=== PATIENT | male | born 1930 | race Caucasian/White ===

== ENCOUNTER 2016-07-16 17:37 | Emergency (ER) | payer MEDICARE, MEDICAID ==
[~2016-07-16] VITALS: Ht 175.3 cm; Wt 89.4 kg
[~2016-07-16 17:37] MED LIST: ATEN50TA80 PO; LISI-646 PO; SIMV-8 PO; WARF5INJ IV
[2016-07-16 20:34] LABS: Basophils # (auto) 0 uL; Basophils % (auto) 0.2 % (0.0-2.0); Eosinophils # (auto) 0.1 uL; Eosinophils % (auto) 0.7 % (0.0-7.0); Hematocrit 44.7 % (41.0-53.0); Hemoglobin 14.3 g/dL (13.5-17.5); Lymphocytes # (auto) 1.5 uL; Mean Corpuscular Volume 90.4 fL (80.0-100.0); Mean Platelet Volume 10.5 fL (7.4-10.4); Monocytes % (auto) 8.5 % (0.0-12.0); Neutrophils # (auto) 9.5 uL; Neutrophils % (auto) 78.6 % (37.0-80.0); Platelet Count (auto) 73 10^3/uL (140-450); Red Cell Distribution Width 13.8 % (11.6-16.0); White Blood Cell 12.1 10^3/uL (4.4-10.8)
[2016-07-16 20:48] LABS: INR 1.28 (0.9-1.15); Prothrombin Time 13.2 sec (9.37-12.3)
[2016-07-16 20:52] LABS: Albumin 3.6 g/dL (3.4-5.0); Calcium 8.7 mg/dL (8.5-10.1); Potassium 4.2 mmol/L (3.5-5.1)
[2016-07-16 20:55] LABS: Bilirubin, Total 1.1 mg/dL (0.2-1.0); Total Protein 6.5 g/dL (6.4-8.2)
[2016-07-16] MEDS ORDERED: cefTRIAXone 1GM/50ML D5W 50 ML IV ONE ×2 (22:26→22:30)
[2016-07-16 23:40] VITALS: BP 140/96
[2016-07-16 23:56] VITALS: BP 118/85
[2016-07-17] VITALS (13 sets, daily range): BP systolic 111–144; BP diastolic 67–102
[2016-07-17] MEDS ORDERED: ACETAMINOPHEN 500 MG TAB PO ONE ×2 (00:12→00:15)
[2016-07-17] MEDS ORDERED: PHYTONADIONE (VIT K)10 MG/ML 1ML VIAL SUBCUT ONE (04:15)
== END 2016-07-17 05:20 | disposition home or self-care (01) ==
LOC: ER 17:40
DX: Z98.818 Other dental procedure status (principal); Z48.01 Encounter for change or removal of surgical wound dressing; I10 Essential (primary) hypertension; Z79.01 Long term (current) use of anticoagulants; Z79.899 Other long term (current) drug therapy
CPT/HCPCS: 36415; 36430; 80053; 85025; 85610; 86850; 86900; 86901; 96365; 96372; 99285; J0696; J3430; J7030; P9017